=== PATIENT | female | born 1970 | race Two or more races ===

== ENCOUNTER 2018-09-29 08:19 | Inpatient (IN) | payer MEDICAID ==
[2018-09-19 09:04] LABS: HEMATOCRIT 44.6 % (37.0-47.0); HEMOGLOBIN 14.8 G/DL (12.0-16.0); MEAN CORPUSCULAR VOLUME 91 FL (80-99); PLATELET COUNT 275 K/UL (150-450); RED BLOOD COUNT 4.88 M/UL (4.20-5.40); RED CELL DISTRIBUTION WIDTH 11.5 % (11.6-14.8); WHITE BLOOD COUNT 5.9 K/UL (4.8-10.8)
[2018-09-19 09:05] LABS: APPEARANCE,URINE SLIGHTLY CLOUDY; BILIRUBIN, URINE NEGATIVE (NEGATIVE); COLOR,URINE PALE YELLOW; GLUCOSE, URINE (UA) NEGATIVE (NEGATIVE); KETONES,URINE NEGATIVE (NEGATIVE); LEUKOCYTE ESTERASE ,URINE 3+ (NEGATIVE); NITRITE,URINE POSITIVE (NEGATIVE); PH,URINE 7 (4.5-8.0); PROTEIN,URINE 1+ (NEGATIVE); UROBILINOGEN,URINE NORMAL MG/DL (0.0-1.0)
[2018-09-19 09:17] LABS: INR 0.9 (0.9-1.1)
[2018-09-19 09:19] LABS: ANION GAP 7 mmol/L (5-15); BLOOD UREA NITROGEN 13 mg/dL (7-18); CALCIUM 9.9 MG/DL (8.5-10.1); CARBON DIOXIDE 30 MMOL/L (21-32); CHLORIDE 103 MMOL/L (98-107); CREATININE 0.8 MG/DL (0.55-1.30); POTASSIUM 4.1 MMOL/L (3.5-5.1); SODIUM 140 MMOL/L (136-145)
--- NOTE | 2018-09-19 14:07 | Diagnostic Imaging Report ---
Indication: Cough Technique: 2 views of the chest Comparison: None Findings: There is a right chest port catheter in place. Lungs and pleural spaces are clear. Heart size is normal. Impression: No acute process
--- NOTE | 2018-09-20 08:46 | Cardiology Report ---
APPROVED REPORT EKG Measurement Heart [id number] Normal sinus rhythm Normal ECG
--- NOTE | 2018-09-27 15:15 | Pre-op HX & Phy Repo 2 SIG ---
DATE OF ADMISSION: 09/29/2018 PREOPERATIVE HISTORY AND PHYSICAL SCHEDULED FOR SURGERY: September 29, 2018. HISTORY OF PRESENT ILLNESS: The patient is a 48-year-old female in overall good health with invasive ductal carcinoma of the left breast, metastatic to left axillary lymph nodes. The patient has completed a course of neoadjuvant chemotherapy and is now scheduled to undergo left breast partial mastectomy with preoperative needle localization and left axillary lymph node biopsy. The patient presented in March 2018 with a 4 x 3 cm mass in the upper outer quadrant of the left breast 5 cm from the nipple, and enlarged axillary lymph nodes were palpable. Core biopsy revealed invasive ductal carcinoma, metastatic to the axillary lymph node, estrogen and progesterone receptor positive, HER2 negative. The patient's last chemotherapy was August 19, 2018. MEDICATIONS: Compazine, Zofran, Elizabeth. ALLERGIES: None. OPERATIONS: None. REVIEW OF SYSTEMS: The patient is premenopausal. ALLERGIES: None. OPERATIONS: None. PHYSICAL EXAMINATION: GENERAL: The patient is 5 foot 3 inches, 170 pounds. HEENT: Within normal limits. LUNGS: Clear. HEART: Regular rhythm. BREASTS: Right breast without palpable abnormality. The left breast, no palpable mass present any longer in the upper outer quadrant. ABDOMEN: Soft. PELVIC AND RECTAL: Per primary care Gynecology. EXTREMITIES: Without edema. NEUROLOGIC: Physiologic. ADDITIONAL STUDIES: Recent ultrasound September 01, 2018 revealed that the left breast mass at 12 o'clock 4 cm from the nipple has markedly decreased in size, less than 2 cm and the lobulated retroareolar mass thought to be a satellite lesion is no longer present indicating complete response to chemotherapy. PLAN: The patient is scheduled to undergo left breast partial mastectomy with preoperative needle localization and left axillary lymph node dissection. I have had a full discussion with the patient regarding the nature of her condition, the nature of the surgery, indications, alternatives, options, and risks including bleeding, infection, injury to adjacent structures or organs, scarring, need for additional procedures in the breast or axilla based on final pathology, need for additional treatment postoperatively including chemotherapy and radiation therapy, need for drains, breast deformity, etc. All questions have been answered. The patient understands and agrees to proceed. Orville Napier M.D. DR: Edil JOB#: [id number] CC: FREDDIE
[~2018-09-29] VITALS: Ht 160 cm; Wt 73.9 kg
[2018-09-29] VITALS (13 sets, daily range): BP systolic 103–154; BP diastolic 57–94
[2018-09-29 08:59] LABS: APPEARANCE,URINE CLEAR; BILIRUBIN, URINE NEGATIVE (NEGATIVE); COLOR,URINE PALE YELLOW; GLUCOSE, URINE (UA) NEGATIVE (NEGATIVE); KETONES,URINE NEGATIVE (NEGATIVE); LEUKOCYTE ESTERASE ,URINE 3+ (NEGATIVE); NITRITE,URINE POSITIVE (NEGATIVE); PH,URINE 7 (4.5-8.0); PROTEIN,URINE NEGATIVE (NEGATIVE); UROBILINOGEN,URINE NORMAL MG/DL (0.0-1.0)
[2018-09-29] MEDS ORDERED: NKM (09:13)
[2018-09-29] MEDS ORDERED: Zemuron 50mg/5ml Inj IV ONE (10:45)
--- NOTE | 2018-09-29 10:46 | Pre-Procedure Note/Attestation ---
Pre-Procedure Note/Attestation Complete Prior to Procedure Planned Procedure: left Procedure Narrative: left breast partial mastectomy with pre-operative needle localization and left axillary lymph node biopsy Indications for Procedure Pre-Operative Diagnosis: invasive ductal carcinoma left breast Attestation I attest that I discussed the nature of the procedure; its benefits; risks and complications; and alternatives (and the risks and benefits of such alternatives ), prior to the procedure, with the patient (or the patient's legal automobile rental representative). I attest that, if there was a reasonable possibility of needing a blood transfusion, the patient (or the patient's legal automobile rental representative) was given the [facility] standardized written summary, pursuant to the [place] Blood Safety Act ([place] Health and Safety Code # 1645, as amended). I attest that I re-evaluated the patient just prior to the surgery and that there has been no change in the patient's H&P, except as documented below:none Orville Napier MD Sep 29, 2018 10:46
[2018-09-29] MEDS ORDERED: Lidocaine 1% MPF 10mg/ml 5ml ONE (10:50)
[2018-09-29] MEDS ORDERED: fentaNYL 100 mcg/2 mL IV ONE (10:50)
[2018-09-29] MEDS ORDERED: Propofol 200mg/20ml IV ONE (10:50)
[2018-09-29] MEDS ORDERED: Midazolam 2mg/2ml Inj ONE (10:51)
[2018-09-29] MEDS ORDERED: Lidocaine 1% 10mg/ml/Epi 0.005mg/ml 30ml vial INJ ONE (10:58)
[2018-09-29] MEDS ORDERED: NeoSporin Gu Irrig 1ml Amp IRRIG ONE (10:59)
[2018-09-29] MEDS ORDERED: Bupivacaine w/Epi 0.5% 30ml Vial INJ ONE (10:59)
[2018-09-29] MEDS ORDERED: LR 1000ml 1,000 ML IVLG SCH (10:59)
[2018-09-29] MEDS ORDERED: Bacitracin 50000 Units Vial ONE (10:59)
--- NOTE | 2018-09-29 10:59 | Anethesia Preoperative Eval ---
Anesthesia Pre-op PMH/ROS General Date of Evaluation: Sep 29, 2018 Anesthesiologist: Bobby ASA Score: ASA 3 Mallampati Score Class I : Soft palate, uvula, fauces, pillars visible Class II: Soft palate, uvula, fauces visible Class III: Soft palate, base of uvula visible Class IV: Only hard plate visible Mallampati Classification: Class III Surgeon: Karthikeyan Diagnosis: Left breast carcinoma Surgical Procedure: Left breast partial mastectomy with lymph node biopsy Anesthesia History: none Family History: no anesthesia problems Allergies: Coded Allergies: No Known Allergies (Unverified , 09/28/18) Patient NPO?: Yes NPO Date: Sep 28, 2018 NPO Time: 1800 Past Medical History Cardiovascular: Reports: other - HLD; Denies: HTN, CAD, OR, valve dz, arrhythmia Pulmonary: Denies: asthma, COPD, [place], other Gastrointestinal/Genitourinary: Denies: GERD, CRI, ESRD, other Neurologic/Psychiatric: Reports: other - migraines; Denies: dementia, CVA, depression/anxiety, TIA Endocrine: Denies: DM, hypothyroidism, steroids, other HEENT: Denies: cataract (L), cataract (R), glaucoma, [place] (L), [place] (R), other Hematology/Immune: Reports: other - left breast carcinoma s/p chemo-last session 1 month ago; Denies: anemia, DVT, bleeding disorder Musculoskeletal/Integumentary: Denies: OA, RA, DJD, DDD, edema, other Anesthesia Pre-op Phys. Exam Physician Exam Last Vital Signs Date Time Temp Pulse Resp B/P (MAP) Pulse Ox O2 Delivery O2 Flow Rate FiO2 09/29/18 09:21 Room Air 09/29/18 09:14 98.1 92 20 128/83 (98) 98 Constitutional: NAD Cardiovascular: RRR Respiratory: CTA Airway Exam Mallampati Score: Class III MO: limited ROM: full Teeth: intact Anesthesia Pre-op A/P Labs see chart Urine Test Test 09/29/18 08:00 Urine HCG, Qualitative Negative (NEGATIVE) Studies Pre-op Studies: EKG - sr, CXR - No acute process Risk Assessment & Plan Assessment: ASA III Plan: GA Status Change Before Surgery: No Pre-Antibiotics Drug: Levaquin 500mg Given Within 1 Hr of Incision: Yes Time Given: 11:15 Jason-[place],Winnie MD Sep 29, 2018 10:59
[2018-09-29] MEDS ORDERED: DiphenhydrAMINE 50mg/ml Inj IVP PRN (11:00)
[2018-09-29] MEDS ORDERED: Metoclopramide 10mg/2ml Inj IVP PRN (11:00)
[2018-09-29] MEDS ORDERED: LORazepam Inj 2mg/ml 1ml IV PRN (11:00)
[2018-09-29] MEDS ORDERED: Ketorolac 30mg Inj IV PRN (11:00)
[2018-09-29] MEDS ORDERED: Hydromorphone 0.5mg/0.5ml inj IVP PRN (11:00)
[2018-09-29] MEDS ORDERED: Sterile Water Irrig 1000ml IRRIG ONE (11:00)
[2018-09-29] MEDS ORDERED: fentaNYL 100 mcg/2 mL IV PRN (11:00)
[2018-09-29] MEDS ORDERED: Midazolam 2mg/2ml Inj IVP PRN (11:00)
[2018-09-29] MEDS ORDERED: NS Irrig 1000ml IRRIG ONE (11:53)
[2018-09-29] MEDS ORDERED: Metoclopramide 10mg/2ml Inj ONE (12:32)
--- NOTE | 2018-09-29 13:03 | Immediate Post-Op Evaluation ---
Immediate Post-Op Evalulation Immediate Post-Op Evalulation Procedure: Left breast mastectomy Date of Evaluation: Sep 29, 2018 Time of Evaluation: 13:03 IV Fluids: 1.5L Blood Products: 0 Estimated Blood Loss: min Urinary Output: 0 Blood Pressure Systolic: 103 Blood Pressure Diastolic: 64 Pulse Rate: 76 Respiratory Rate: 16 O2 Sat by Pulse Oximetry: 100 Temperature (Fahrenheit): 97 Pain Score (1-10): 0 Nausea: No Vomiting: No Complications 0 Patient Status: awake, reacts, patent, none Hydration Status: adequate Drug: Levquin 500mg Given Within 1 Hr of Incision: Yes Time Given: 11:15 Winnie Preston MD Sep 29, 2018 13:03
--- NOTE | 2018-09-29 13:11 | Brief Operative Note ---
Immediate Post Operative Note Operative Note Pre-op Diagnosis: invasive ductal carcinoma left breast Procedure: left modified radical mastectomy Post-op Diagnosis: same Post-op Diagnosis: same as pre-op Findings: consistent w/pre-op dx studies, other - extensive tumor mass extending to nipple-areola complex Surgeon: donna Anesthesiologist: rajan Anesthesia: general Specimen: yes - left breast and axillary nodes Complications: none Condition: stable Fluids: see anesthesia record Estimated Blood Loss: minimal Drains: other - Azael drain x 2 Implant(s) used?: No Orville Napier MD Sep 29, 2018 13:11
[2018-09-29] MEDS: D5 1/2NS w/KCl 20mEq 1,000 ML IV SCH (16:11)
[2018-09-29] MEDS: HYDROmorphone 1mg/ml Carpuject SUBQ PRN (17:19)
--- NOTE | 2018-09-29 18:53 | 48 Hour Post Anesthesia Eval ---
Post Anesthesia Evaluation Procedure: Left breast mastectomy Date of Evaluation: Sep 29, 2018 Time of Evaluation: 18:52 Blood Pressure Systolic: 130 0: 94 Pulse Rate: 102 Respiratory Rate: 19 Temperature (Fahrenheit): 98 Airway: patent Nausea: No Vomiting: No Pain Intensity: 3 Cardiopulmonary Status: Stable Follow-up Care/Observations: 0 Post-Anesthesia Complications: 0 Follow-up care needed: ready to discharge Tevin Robertson MD Sep 29, 2018 18:53
--- NOTE | 2018-09-29 19:45 | Operative Note - Dictated ---
DATE OF OPERATION: 09/29/2018 SURGEON: Orville Napier M.D. PROMOTIONS REPRESENTATIVE: None. ANESTHESIOLOGIST: Dr. Rosales. TYPE OF ANESTHESIA: General endotracheal. PREOPERATIVE DIAGNOSIS: Invasive ductal carcinoma, left breast, metastatic to left axillary lymph node. POSTOPERATIVE DIAGNOSIS: Invasive ductal carcinoma, left breast, metastatic to left axillary lymph node. OPERATION PERFORMED: Left breast modified radical mastectomy. INDICATIONS: The patient presented with a large mass in the superior and upper outer quadrant of the left breast with a lesion extending retroareolar. She completed a course of neoadjuvant chemotherapy with marked decrease in the mass. Initial attempts at partial mastectomy revealed the mass extended completely under the areola and a total mastectomy was required. The patient is ER and VA positive, HER2 negative. DESCRIPTION OF PROCEDURE: The patient was taken to the operating room and under general anesthesia with sequential compression device stockings in place, she was prepped and draped in the usual fashion incorporating the left upper extremity into the sterile field. I initially made a transverse incision above the areolar margin and dissected flaps superiorly bringing the wire into the field. It became evident that the mass extended under the nipple-areolar complex where a partial mastectomy would not be adequate. Accordingly, a Bertrand type incision was outlined and flaps dissected to the clavicle, sternum, costal margin, and the latissimus dorsi. The breast was excised including the pectoralis fascia and the lower level axillary dissection using clips and 2-0 Vicryl ties for hemostasis as well as cautery. The field was irrigated with sterile water and then antibiotic solution. Hemostasis was secure. With two separate stab incisions inferolaterally 19 mm Azael drains were placed, one under the flaps and one into the axilla and each was sutured to the skin with 2-0 nylon suture. After ascertaining that hemostasis was secure the incision was closed with interrupted inverted 2-0 Vicryl followed by lashell. With charging of the drains, there was good apposition of the flaps to the chest wall and the axilla. Dry sterile dressings were applied. Final sponge and needle counts were correct. The patient tolerated the procedure well and left the operating room in good condition. Orville Napier M.D. DR: Edil JOB#: [id number] CC: FREDDIE
[2018-09-29] MEDS: Norco 5mg/325mg tab ORAL PRN (20:09)
[2018-09-30] VITALS (7 sets, daily range): BP systolic 121–155; BP diastolic 76–103
[2018-09-30] MEDS: D5 1/2NS w/KCl 20mEq 1,000 ML IV SCH (01:52)
[2018-09-30] MEDS: HYDROmorphone 1mg/ml Carpuject SUBQ PRN ×2 (02:01→08:19)
[2018-09-30] MEDS: Levofloxacin 500mg tab ORAL SCH (08:19)
--- NOTE | 2018-09-30 10:35 | General Progress Note ---
Progress Note Progress Note T 100.7 Had emesis last night but able to eat breakfast this AM. Required Dilaudid SQ for pain overnight Incision clean. NADINE 55+16 Urine C&S from pre-operative on admission: gram negative bacillus Imp. Post-op N/V and pain - improved Fever due to atelectasis likely UTI present on admission - on Levaquin pending sensitivities Plan; Continue in hospital d/c IV fluids if tolerating po well pulm toilet increase activity teach re care of NADINE drains f/u labs Orville Napier MD Sep 30, 2018 10:35
[2018-09-30] MEDS: Norco 5mg/325mg tab ORAL PRN ×2 (14:46→20:50)
[2018-10-01] VITALS: BP 143/84
[2018-10-01 04:00] VITALS: BP 143/84
[2018-10-01] MEDS: Norco 5mg/325mg tab ORAL PRN ×5 (04:29→21:55)
[2018-10-01 05:06] LABS: BASOPHILS % (AUTO) 0.9 % (0.0-2.0); EOSINOPHILS % (AUTO) 6.9 % (0.0-3.0); HEMATOCRIT 40.5 % (37.0-47.0); HEMOGLOBIN 13.6 G/DL (12.0-16.0); LYMPHOCYTES % (AUTO) 30.4 % (20.0-45.0); MEAN CORPUSCULAR VOLUME 90 FL (80-99); MONOCYTES % (AUTO) 10.3 % (1.0-10.0); NEUTROPHILS % (AUTO) 51.5 % (45.0-75.0); PLATELET COUNT 198 K/UL (150-450); RED CELL DISTRIBUTION WIDTH 11.8 % (11.6-14.8); WHITE BLOOD COUNT 4.4 K/UL (4.8-10.8)
[2018-10-01 05:29] LABS: ANION GAP 8 mmol/L (5-15); BLOOD UREA NITROGEN 9 mg/dL (7-18); CALCIUM 9.2 MG/DL (8.5-10.1); CARBON DIOXIDE 28 MMOL/L (21-32); CHLORIDE 103 MMOL/L (98-107); CREATININE 0.8 MG/DL (0.55-1.30); POTASSIUM 3.6 MMOL/L (3.5-5.1); SODIUM 139 MMOL/L (136-145)
[2018-10-01 08:00] VITALS: BP 124/73
[2018-10-01] MEDS: Levofloxacin 500mg tab ORAL SCH (08:42)
--- NOTE | 2018-10-01 09:27 | General Progress Note ---
Progress Note Progress Note T 100.7 Nausea resolved. Pre-op admission urine C&S - E. coli UTI - sensitive to Levaquin left mastectomy incision is clean. NADINE: 54+23 serosang WBC low 4400 (recent chemotherapy) BMP-wnl Imp. Fever Plan: Continue in-patient care and RN teaching of drain care Continue q4h VS and [place] Orville Napier MD Oct 01, 2018 09:27
[2018-10-01 12:00] VITALS: BP 115/78
[2018-10-01 16:00] VITALS: BP 127/89
[2018-10-01 20:00] VITALS: BP 151/89
[2018-10-02] VITALS: BP 150/74
[2018-10-02 04:00] VITALS: BP 130/88
[2018-10-02] MEDS: Norco 5mg/325mg tab ORAL PRN (04:41)
[2018-10-02 08:00] VITALS: BP 121/82
[2018-10-02] MEDS: Levofloxacin 500mg tab ORAL SCH (08:16)
--- NOTE | 2018-10-02 09:48 | General Progress Note ---
Progress Note Progress Note Afebrile and doing better with po meds only mastectomy incision clean, dry NADINE drains: 60+33 more serous Imp. Improved Plan: Discharge with NADINE drains Instructions/limitations discussed Rx Merkel #[id number] f/u office 10/05 Orville Napier MD Oct 02, 2018 09:48
--- NOTE | 2018-10-04 14:44 | Discharge Summary ---
Discharge Summary Hospital Course Date of Admission Sep 29, 2018 at 14:36 Date of Discharge Oct 02, 2018 at 10:40 Admitting Diagnosis LEFT BREAST CARCINOMA Reason for Hospitalization: elective surgery HPI Angela Mendes is a 48 year old female who was admitted on Sep 29, 2018 at 14:36 for left breast carcinoma. Patient was admitted for elective surgery. Procedures s/p 09/29/[address] Napier Left breast modified radical mastectomy. Hospital Course s/p surgery initially IV fluids pain management initially postoperative fever possibly secondary to atelectasis urinalysis + UTI, urine culture + E coli started on oral Levaquin and discontinue prior to discharge , fever resolved incentive spirometry encouraged while in the bed patient was out of bed and ambulated as tolerated, encouraged frequent ambulation output from [place] was closely monitored patient was instructed how to manage [place] drains at home, record output and empty them diet was slowly advanced patient was able to tolerate diet pain controlled mastectomy incision clean and intact patient ambulated voided freely bowel regimen instituted patient was stable for discharge home discharge instruction provided prescription for [place] provided patient to follow-up with surgeon on pathology report back and revealed invasive ductal carcinoma grade 2. All margins negative for carcinoma. Metastatic carcinoma identified in one out of 2 lymph nodes. FINAL DIAGNOSES Invasive ductal carcinoma grade 2, left breast, metastatic to left axillary lymph node s/p left breast modified radical mastectomy E coli UTI, s/p treatment Discharge Medications Discontinued Medications: No Known Medications* (NKM - No Known Medications*) . 0 ., 0 Refills Discharge Condition Upon Discharge: stable Discharge Disposition Patient was discharged to Home (01) Discharge Instructions Discharge Instructions Special Instructions I have been assigned to complete a D/C Summary on this account. I was not involved in the patient management Latesha Holden NP Oct 04, 2018 14:44
== END 2018-10-02 10:40 | disposition home or self-care (01) | DRG 362 ==
LOC: SUR 08:19 → 3E 14:36
PROC: 07B60ZX Excision of Left Axillary Lymphatic, Open Approach, Diagnostic (ICD-10-PCS; 2018-09-29)
PROC: 0HTU0ZZ Resection of Left Breast, Open Approach (ICD-10-PCS; principal; 2018-09-29 11:00)
DX: C50.812 Malignant neoplasm of overlapping sites of left female breast (principal); C77.3 Secondary and unspecified malignant neoplasm of axilla and upper limb lymph nodes; Z17.0 Estrogen receptor positive status [ER+]
CPT/HCPCS: 36415; 71046; 80048; 81001; 81003; 81025; 85007; 85025; 85610; 85730; 87081; 87086; 87181; 93005; 94003; 94150; J2250; J2405; J2765